=== PATIENT | female | born 1995 | race American Indian/Alaskan Native ===

== ENCOUNTER 2021-06-05 09:41 | Outpatient (CLI) | payer MEDICAID, OTHER ==
[2021-06-05 11:48] VITALS: BP 104/64
== END 2021-06-05 11:58 | disposition home or self-care (01) ==
LOC: TRG 09:41 → APU 09:43 → TRG 11:58
PROVIDERS: ATTEND Obstetrics & Gynecology
DX: Z34.93 Encounter for supervision of normal pregnancy, unspecified, third trimester (principal); Z3A.37 37 weeks gestation of pregnancy
CPT/HCPCS: 59025

== ENCOUNTER 2021-06-07 10:17 | Outpatient (CLI) | payer OTHER ==
[2021-06-07 11:52] VITALS: BP 99/54
[2021-06-07] MEDS ORDERED: ACETAMINOPHEN 500 MG TAB ONE (14:54)
== END 2021-06-07 15:48 | disposition home or self-care (01) ==
LOC: TRG 10:17 → APU 10:26 → TRG 15:48
PROVIDERS: ATTEND Obstetrics & Gynecology
DX: Z34.93 Encounter for supervision of normal pregnancy, unspecified, third trimester (principal); Z3A.38 38 weeks gestation of pregnancy
CPT/HCPCS: 59025